=== PATIENT | male | born 2000 | race Caucasian/White ===

== ENCOUNTER 2024-07-12 20:50 | Emergency (ER) | payer OTHER, SELFPAY ==
--- NOTE | ~2024-07-12 | XR_ITS ---
EXAMINATION: XR chest 2V DATE: 07/12/2024 21:22 INDICATION: Upper respiratory tract infection. Rib pain. TECHNIQUE: PA and lateral views of the chest were obtained. COMPARISON: None FINDINGS: The lungs are clear with no focal airspace opacities, pulmonary edema, pleural effusion or pneumothor ax. The cardiomediastinal silhouette is normal. Visualized bones and soft tissues are unremarkable. IMPRESSION: 1. Normal chest radiograph. Reviewed, dictated and finalized at location A. IMPRESSION: 1. Normal chest radiograph.
[2024-07-12 21:45] VITALS: BP 137/86; PULSE 93; RESP 20; TEMP 37.1; O2SAT 100
[2024-07-12 23:20] LABS: Influenza A QL RT-PCR Negative (Negative); Influenza B QL RT-PCR Negative (Negative); SARS-CoV-2 RNA PCR Negative (Negative)
--- NOTE | 2024-07-13 02:36 | ED.GENADULT ---
HPI - General Adult General Chief complaint: Unspecified Stated complaint: cough, rib pain Time Seen by Provider: 07/13/24 02:30 History of Present Illness HPI narrative: Patient is a 24-year-old male who presents to the emergency department this evening complaining of right-sided pain after having a coughing spell. Patient states that he recently got over an upper respiratory infection but has had a lingering cough and today while walking the dog he coughed hard and felt a pop in his right ribs. Denies any fevers or chills at home, states that he has been prescribed Tessalon Perles which have not really helped the cough. Denies any additional symptoms or concerns at this time. Related Data Allergies Allergy/AdvReac Type Severity Reaction Status Date / Time No Known Allergies Allergy Verified 07/12/24 21:52 Review of Systems Review of Systems: All systems are reviewed and are negative unless stated otherwise in the HPI. Exam Narrative: General: Alert, awake, afebrile, in no acute distress. HEENT: PERRL, no rhinorrhea, no post nasal drip, oropharynx clear. Cardiovascular: Regular rate and rhythm, no murmurs, rubs or gallops, no peripheral edema. Respiratory: Clear to auscultation bilaterally, no tachypnea, no wheezing, no rhonchi, no rubs, no respiratory distress. Abdomen: Soft, nontender, nondistended, no rebound, no guarding, no peritoneal signs. Musculoskeletal: No joint swelling or deformity, normal muscle tone. Skin: No rashes or petechia, no signs of infection. Neurological: Alert and oriented to person, place, and time. Follows all commands. No focal deficits, speech is clear and fluent. Course Vital Signs Vital signs: Vital Signs Temperature 98.7 F 07/12/24 21:45 Pulse Rate 93 07/12/24 21:45 Respiratory Rate 20 07/12/24 21:45 Blood Pressure 137/86 07/12/24 21:45 Pulse Oximetry 100 07/12/24 21:45 Oxygen Delivery Room Air 07/12/24 21:45 Temperature 98.7 F 07/12/24 21:45 Pulse Rate 93 07/12/24 21:45 Respiratory Rate 20 07/12/24 21:45 Blood Pressure 137/86 07/12/24 21:45 Pulse Oximetry 100 07/12/24 21:45 Oxygen Delivery Room Air 07/12/24 21:45 Medical Decision Making MDM Narrative Medical decision making narrative: The patient was evaluated by myself in the emergency department. History is obtained from patient who is an independent historian and physical exam was performed. External medical records were reviewed at this time. Viral swabs noted to be negative. Imaging studies obtained included CXR which was independently interpreted by me revealing no acute process, which is pending final radiology interpretation. Differential diagnosis considerations include acute viral syndrome, infectious process such as pneumonia. Comorbidities impacting this visit include none. I have evaluated and discussed social determinants of health with the patient that could potentially impact subsequent diagnosis and treatment plans. On repeat assessment of the patient, reevaluation revealed that the patient is doing well and is in no acute distress. Patient symptoms have improved since he arrived to our emergency department. Repeat vital signs were all reviewed and noted to be stable. Differential diagnosis and treatment plan were discussed with the patient at bedside. Patient agrees with discussion and after shared medical decision making agrees with discharge. All questions were answered to the patient's satisfaction. Patient will follow up with his PCP in 3-5 days. Patient was provided with strict return precautions and instructed to return to the emergency department if any new or worsening symptoms develop. The patient was discharged in stable condition. Vital Signs Vital Signs: Vital Signs Temperature 98.7 F 07/12/24 21:45 Pulse Rate 93 07/12/24 21:45 Respiratory Rate 20 07/12/24 21:45 Blood Pressure 137/86 07/12/24 21:45 Pulse Oximetry 100
[2024-07-13 02:48] VITALS: BP 137/85; PULSE 94; RESP 22; O2SAT 97
== END 2024-07-13 03:00 | disposition home or self-care (01) ==
PROVIDERS: Emergency Provider Emergency Medicine
DX: J06.9 Acute upper respiratory infection, unspecified (principal); Z20.822 Contact with and (suspected) exposure to COVID-19
CPT/HCPCS: 71046; 87636; 99283